=== PATIENT | female | born 1990 | race Hispanic/Latino ===

== ENCOUNTER 2016-08-28 00:21 | Inpatient (IN) ==
[2016-08-28] MEDS ORDERED: LR 2,000 ML ONE (00:39)
[2016-08-28] MEDS ORDERED: REGLAN PO ONE (00:40)
[2016-08-28] MEDS ORDERED: KEFZOL 1 GM/D5W 1 GM/50 ML IVPB IV PRN (00:40)
[2016-08-28] MEDS ORDERED: PEPCID PO ONE (00:40)
[2016-08-28] MEDS ORDERED: STADOL IV PRN (00:40)
[2016-08-28] MEDS ORDERED: AMPICILLIN 2 GM/NS 2 GM/100 ML IVPB IV ONE (00:40)
[2016-08-28] MEDS ORDERED: PEPCID PO PRN (00:40)
[2016-08-28] MEDS ORDERED: LR 1,000 ML IV SCH (00:40)
[2016-08-28] MEDS ORDERED: ZOFRAN IV PRN (00:40)
[2016-08-28] MEDS ORDERED: PITOCIN 30 UNITS/LR 30 UNITS/500 ML IV.SOLN IV SCH (00:40)
[2016-08-28] MEDS ORDERED: TYLENOL PO PRN (00:40)
[2016-08-28] MEDS ORDERED: PEPCID IV PRN (00:40)
[2016-08-28] MEDS ORDERED: SODIUM CHLORIDE 0.9% INJ SCH (00:45)
[2016-08-28 01:45] LABS: UR AMPHETAMINES QUAL NONE DETECTED (NONE DETECT); UR BARBITUATES QUAL NONE DETECTED (NONE DETECT); UR BENZODIAZEPIN QUAL NONE DETECTED (NONE DETECT); UR CANNABINOIDS QUAL NONE DETECTED (NONE DETECT); UR COCAINE QUAL NONE DETECTED (NONE DETECT); UR MDMA QUAL NONE DETECTED (NONE DETECT); UR METHADONE QUAL NONE DETECTED (NONE DETECT); UR METHAMPHETAMINE QUAL NONE DETECTED (NONE DETECT); UR OPIATES QUAL NONE DETECTED (NONE DETECT); UR OXYCODONE QUAL NONE DETECTED (NONE DETECT); UR PCP QUAL NONE DETECTED (NONE DETECT); UR TCA QUAL NONE DETECTED (NONE DETECT)
[2016-08-28 01:55] LABS: RAPID HIV PRESUMPTIVE NEGATIVE
[2016-08-28 01:56] LABS: RPR NON-REACTIVE (NONREACTIVE)
[2016-08-28 02:25] LABS: HEMATOCRIT 32.1 % (37.0-47.0); HEMOGLOBIN 10.2 g/dL (12.0-16.0); MCH 22.3 PG (27-31); MCHC 31.8 g/dL (33-37); MCV 70.1 FL (81-99); MPV 11.4 FL (7.4-10.4); PLT 238 X1000 (130-400); RBC 4.58 XMIL (4.2-5.4)
[2016-08-28 02:26] LABS: BASO% 0.1 % (0.0-0.8); EOS# 0.07 X1000 (0.0-0.7); EOS% 0.5 % (0.0-10.0); IMM GRAN# 0.11 X1000 (0.0-0.04); IMM GRAN% 0.7 % (0.0-0.5); MANUAL DIFF NEEDED? YES; MONO% 4.1 % (1.7-9.3); NEUT% 77.6 % (42.2-75.2)
[2016-08-28 02:27] LABS: BANDS 8 % (0-1); HYPOCHROM 2+; LYMPHS 18 % (21-51); MONO 4 % (1-9)
[2016-08-28] MEDS ORDERED: CYTOTEC PO PRN (02:32)
[2016-08-28] MEDS ORDERED: M-M-R II VACCINE SUBQ ONE (02:32)
[2016-08-28] MEDS ORDERED: HYDROXYZINE PO PRN (02:32)
[2016-08-28] MEDS ORDERED: PITOCIN 20 UNITS/LR 20 UNITS/1,000 ML IV.SOLN IV SCH (02:32)
[2016-08-28] MEDS ORDERED: PITOCIN IM PRN (02:32)
[2016-08-28] MEDS ORDERED: XYLOCAINE-MPF 1% INJ PRN (02:32)
[2016-08-28] MEDS ORDERED: BOOSTRIX VACCINE IM ONE (02:32)
[2016-08-28] MEDS ORDERED: PITOCIN 30 UNITS/LR 30 UNITS/500 ML IV.SOLN IV ONE (02:32)
[2016-08-28] MEDS ORDERED: MINERAL OIL PO PRN (02:32)
[2016-08-28] MEDS ORDERED: PERI MEDS (DERMOPLAST/NUPERCAINAL/TUCKS) MISC PRN (02:32)
[2016-08-28] MEDS ORDERED: HYDROXYZINE IM PRN (02:32)
[2016-08-28] MEDS ORDERED: BENADRYL PO PRN (02:32)
[2016-08-28] MEDS ORDERED: BENADRYL IV PRN (02:32)
[2016-08-28] MEDS ORDERED: AMBIEN PO PRN (02:32)
[2016-08-28 02:48] LABS: HEMOGLOBIN A1C 5.4 % (4.8-6.0)
[2016-08-28] MEDS: MOTRIN PO PRN ×2 (02:59→20:12)
[2016-08-28] MEDS: NORCO-5 PO PRN (02:59)
--- NOTE | 2016-08-28 03:46 | HISTORY AND PHYSICAL ---
DIAGNOSES: 1. Intrauterine urine at term, no care. 2. Non-Tristanian speaking. 3. Active labor. HISTORY OF PRESENT ILLNESS: Ms. Thomas is a 26-year-old, 3, para 2 who, through her , states that she was due to deliver the mid of April. She has had no care this . She states she started jaden earlier today and presented to labor and delivery with advanced cervical dilatation. She is being admitted. She has had 2 previous vaginal deliveries. PAST MEDICAL HISTORY: She has no past medical history. PAST SURGICAL HISTORY: No past surgical history. ALLERGIES: No known drug allergies. SOCIAL HISTORY: She denies tobacco, alcohol, or drug use. PHYSICAL EXAMINATION: VITAL SIGNS: Stable. She is afebrile. GENERAL: She is alert and cooperative, no distress. NECK: Supple. LUNGS: Clear. HEART: Regular sinus rhythm. ABDOMEN: Gravid. PELVIC: Cervix, advanced dilatation. Infant is vertex. EXTREMITIES: No cyanosis, clubbing, or edema in her extremities. LABORATORY VALUES: Glucose of 97. Urine is negative. Toxicology is negative. DELIVERY NOTE: The patient has a precipitous vaginal delivery of a macrosomic male , occiput anterior. Membranes ruptured at time of delivery are clear. Once the delivered, the cord was doubly clamped and cut. Cord blood was obtained. Three-vessel cord is noted. Gentle traction on the cord resulted in delivery of the placenta after approximately 5 minutes. It was inspected and found to be intact. Inspection of the perineum revealed a second-degree laceration, repaired with 3-0 Polysorb. No clots or foreign material in the vaginal vault. All counts are correct of [place], needles, vaginal pack. ESTIMATED BLOOD LOSS: 150 mL. PLAN: Expect routine . Due to the macrosomic , even though glucose was 97, we will get a hemoglobin A1c. Beta strep is unknown. She did receive 1 dose of antibiotics before rupture. cc: oTney Coombs MD
[2016-08-28] MEDS ORDERED: AMPICILLIN 1 GM/NS 1 GM/50 ML IVPB IV SCH (04:41)
[2016-08-28 07:25] LABS: RUBELLA SCREEN IMMUNE (IMMUNE)
[2016-08-28] MEDS: NORCO-10 PO PRN (20:12)
[2016-08-28] MEDS: PERICOLACE PO SCH (20:12)
[2016-08-29 07:01] LABS: BASO% 0.3 % (0.0-0.8); EOS# 0.26 X1000 (0.0-0.7); EOS% 1.8 % (0.0-10.0); HEMATOCRIT 24.7 % (37.0-47.0); HEMOGLOBIN 7.2 g/dL (12.0-16.0); IMM GRAN# 0.14 X1000 (0.0-0.04); IMM GRAN% 0.9 % (0.0-0.5); LYMPH# 4.71 X1000 (1.2-3.4); LYMPH% 31.9 % (20.5-51.1); MANUAL DIFF NEEDED? YES; MCH 21.1 PG (27-31); MCHC 29.1 g/dL (33-37); MCV 72.2 FL (81-99); MONO% 6.8 % (1.7-9.3); MPV 11.2 FL (7.4-10.4); NEUT% 58.3 % (42.2-75.2); PLT 209 X1000 (130-400); RBC 3.42 XMIL (4.2-5.4)
[2016-08-29 07:38] LABS: BANDS 1 % (0-1); EOS 1 % (1-10); LYMPHS 30 % (21-51); MONO 4 % (1-9)
[2016-08-29 09:20] LABS: HEPATITIS B SURFACE ANTIGEN SEE COMMENTS
[2016-08-29 09:20] LABS: HIV ANTIBODY SCREEN SEE COMMENTS
[2016-08-29] MEDS: NORCO-10 PO PRN ×2 (16:47→20:41)
[2016-08-29] MEDS: MOTRIN PO PRN (20:41)
[2016-08-29] MEDS: PERICOLACE PO SCH (20:42)
[2016-08-29] MEDS: FERROUS SULFATE PO SCH (20:42)
[2016-08-30] MEDS: MOTRIN PO PRN (04:23)
[2016-08-30] MEDS: NORCO-5 PO PRN (04:23)
[2016-08-30 07:39] VITALS: BP 97/57
[2016-08-30] MEDS: FERROUS SULFATE PO SCH (08:57)
--- NOTE | 2016-08-30 14:07 | DISCHARGE SUMMARY ---
ADMISSION DATE: 08/28/2016 DISCHARGE DATE: 08/30/2016 ADMITTING DIAGNOSIS: Term , no care, active labor. PROCEDURE: Vaginal delivery. CONDITION: Stable. DIET: As tolerated. ACTIVITY: Routine . MEDICATIONS: She is to resume [id number] vitamins and iron tablets and prescription for Motrin 800, and she is to follow up in 6 weeks in the office. HOSPITAL COURSE: Please refer to her operative note. She presented in active labor. She had a precipitous vaginal delivery. Her hepatitis is nonreactive. Her rubella is immune. HIV nonreactive and RPR nonreactive, so she has done well since delivery. Has no complaints. PHYSICAL EXAMINATION: Vital signs: Are stable. She is afebrile. She is alert and cooperative. Abdomen: Her abdomen is distended but uterus is firm and nontender. LABORATORY: I do not have any new laboratory values. Her post delivery hemoglobin and hematocrit was 7/24 so we will discharge with above instructions. cc: Toney Coombs MD
== END 2016-08-30 14:00 | disposition home or self-care (01) ==
LOC: P.OPLD 00:21 → P.LD 00:29 → P.WC 13:49
PROVIDERS: ADMIT Obstetrics & Gynecology; ATTEND Obstetrics & Gynecology